=== PATIENT | female | born 1980 | race Two or more races ===

== ENCOUNTER 2017-04-19 21:40 | Emergency (ER) | payer SELFPAY ==
[~2017-04-19] VITALS: Ht 157.5 cm; Wt 54.4 kg
[2017-04-19 22:00] VITALS: BP 132/85
[2017-04-19 22:32] LABS: Eosinophils # (auto) 0.1 uL; Monocytes # (auto) 0.5 uL; White Blood Cell 4.6 10^3/uL (4.4-10.8)
[2017-04-19 22:34] LABS: Basophils # (auto) 0 uL; Basophils % (auto) 0.7 % (0.0-2.0); Eosinophils % (auto) 2.1 % (0.0-7.0); Hematocrit 43.2 % (36.0-46.0); Hemoglobin 14.3 g/dL (12.2-16.2); Lymphocytes # (auto) 2.4 uL; Lymphocytes % (auto) 51.8 % (10.0-50.0); Mean Corpuscular Hemoglobin 26.3 pg (28.0-32.0); Mean Corpuscular Volume 79.6 fL (80.0-100.0); Monocytes % (auto) 10.6 % (0.0-12.0); Neutrophils # (auto) 1.6 uL; Neutrophils % (auto) 34.8 % (37.0-80.0); Nucleated Red Blood Cells % 0.4 %; Platelet Count (auto) 332 10^3/uL (140-450); Red Blood Cells 5.43 10^6/uL (4.0-5.20); Red Cell Distribution Width 13.4 % (11.8-14.3)
[2017-04-19 22:48] LABS: Albumin 3.8 g/dL (3.4-5.0); Anion Gap 10 (5-15); Calcium 9.1 mg/dL (8.5-10.1); Carbon Dioxide 26 mmol/L (21-32); Chloride 103 mmol/L (98-107); Glucose 96 mg/dL (74-106); Magnesium 2.2 mg/dL (1.6-2.6); Potassium 3.4 mmol/L (3.5-5.1); Sodium 139 mmol/L (136-145)
[2017-04-19 22:51] LABS: Alanine Aminotransferase 20 U/L (13-56); Aspartate Aminotransferase 14 U/L (15-37); Bilirubin, Total 1.2 mg/dL (0.2-1.0); Blood Urea Nitrogen 7 mg/dL (7-18); GFR African American 178 mL/min; GFR Non-African American 147 mL/min; Total Protein 7.9 g/dL (6.4-8.2)
[2017-04-19 23:07] LABS: Alkaline Phosphatase 106 U/L (45-117)
[2017-04-19 23:31] LABS: Alcohol, Urine < 3.0 mg/dL (0-5); Amphetamine Screen, Urine NEGATIVE (NEGATIVE); Barbiturate Scree,Urine NEGATIVE (NEGATIVE); Benzodiazephine Screen, Urine NEGATIVE (NEGATIVE); Cannabinoid Screen, Urine NEGATIVE (NEGATIVE); Cocaine Screen, Urine NEGATIVE (NEGATIVE); Opiate Scree,Urine NEGATIVE (NEGATIVE); Phencyclidine Screen, Urine NEGATIVE (NEGATIVE)
[2017-04-20] MEDS ORDERED: IBUPROFEN 400 MG TAB PO ONE ×2 (05:20→05:30)
== END 2017-04-20 04:50 | disposition left against medical advice (07) ==
LOC: ER 21:41
DX: R07.89 Other chest pain (principal); R51 Headache; Z53.21 Procedure and treatment not carried out due to patient leaving prior to being seen by health care provider
CPT/HCPCS: 36415; 80053; 80307; 83735; 84443; 84484; 85025; 93005